=== PATIENT | male | born 2000 | race Caucasian/White ===

== ENCOUNTER 2020-06-05 15:56 | Emergency (ER) | payer SELFPAY ==
[2020-06-05 16:04] VITALS: BP 146/72
--- NOTE | 2020-06-05 16:25 | ER Document Report ---
ED Medical Screen (RME) - General Chief Complaint: Facial Swelling Stated Complaint: LIPS SWELLING,FACIAL SWELLING Time Seen by Provider: 06/05/20 16:16 Mode of Arrival: Ambulatory Information source: Patient Notes: 19-year-old male presented to ED for facial swelling that started yesterday afternoon. He states yesterday afternoon he took some vitamin C and drank some cranberry juice. He states after he noticed his face swelling he went to the urgent care [facility] and they prescribed him a methylprednisolone Dosepak. He took his first dose last night then he went to his aunts house and she gave him some more cranberry juice. He states he went home went to bed and when he woke up last night at about 11 PM his lip was very swollen. He states he went back to sleep he was not having trouble breathing at this time. He states this morning the lip was not getting any better so he took some Benadryl 75 mg by mouth in the mouth is now one quarter size it was yesterday. He does not know if he is allergic to the cranberry juice because he had it both times. Physical Exam - Vital signs Vitals: Temp Pulse Resp BP Pulse Ox 98.9 F 100 16 146/72 H 98 06/05/20 16:02 06/05/20 16:02 06/05/20 16:02 06/05/20 16:02 06/05/20 16:02 Course - Vital Signs Vital signs: Temp Pulse Resp BP Pulse Ox 98.9 F 100 16 146/72 H 98 06/05/20 16:02 06/05/20 16:02 06/05/20 16:02 06/05/20 16:02 06/05/20 16:02
--- NOTE | 2020-06-05 16:33 | ER Document Report ---
ED Flu Like - General Chief Complaint: Facial Swelling Stated Complaint: LIPS SWELLING,FACIAL SWELLING Time Seen by Provider: 06/05/20 16:16 Primary Care Provider: [facility] [Provider Group] - Follow up as needed [facility] [Provider Group] - Follow up as needed Mode of Arrival: Ambulatory Information source: Patient Notes: 19-year-old male presented to ED for improved swollen lip and cough and congestion. He states he had some cranberry juice and vitamin C yesterday and then noticed that his face was swelling. He went to [facility] and they started him on a methylprednisone Dosepak. He states he took the methylprednisone and then went to his aunts house and had some more cranberry juice. He states he woke up a little about 11:00 and found out that his mouth was swollen. He states he was not having any shortness of breath difficulty swallowing or any other symptoms so he went back to sleep. He states he woke up this morning and his lip was still very flat and swollen so he took some Benadryl 75 mg. He states his face is now less than a quarter is swollen as it was yesterday in his lip is even less swollen. He states he still has the cough and congestion for the last 3-4 5 days and has been using yegb-idz-pbgqgvl medications and lot of different types of medications. He states none of these seem to be helping. He states he has not had any fever or sore throat. He states he came to the emergency room to make sure that his mouth was getting better and to check out why he is having cough and congestion. He states he just had a Covid test and it will get resulted in a couple days. Constitutional: Negative for fever. HENT: Swelling to the face started yesterday improved intracerebrally after the methylprednisone the swelling to the lip started after drinking more of the cranberry juice and taking the methylprednisone. He states it all improved considerably when he took the Benadryl. Eyes: Negative for visual changes. Cardiovascular: Negative for chest pain. Respiratory: States has had cough and congestion for 3 to 4 days and has been using multiple tnig-vej-bxyllmd medications with no relief denies any fevers Gastrointestinal: Negative for abdominal pain, vomiting or diarrhea. Genitourinary: Negative for dysuria. Musculoskeletal: Negative for back pain. Skin: Negative for rash. Neurological: Negative for headaches, weakness or numbness. 10 point ROS negative except as marked above and in HPI. PHYSICAL EXAMINATION: GENERAL: Well-appearing, well-nourished and in no acute distress. HEAD: Atraumatic, normocephalic. EYES: Pupils equal round extraocular movements intact, conjunctiva are normal. ENT: No swelling noted to the face nose or lips. No swelling to the tongue. No airway compromise noted. Patient does have significant nasal drainage and postnasal drip NECK: Normal range of motion LUNGS: No respiratory distress no cough congestion lungs are clear to auscultation Musculoskeletal: Normal range of motion NEUROLOGICAL: Normal speech, normal gait. PSYCH: Normal mood, normal affect. SKIN: Warm, Dry, normal turgor, no rashes or lesions noted. - HPI Onset: Other - See above note Timing/Duration: Better Quality of pain: No pain Severity: None Pain Level: Denies Associated symptoms: Nonproductive cough, Rhinnorhea, Sinus pain/drainage, Other - Swelling to lip and face Similar symptoms previously: Yes Recently seen / treated by doctor: Yes Past Medical History - General Information source: Patient - Social History Smoking Status: Never Smoker Frequency of alcohol use: None Drug Abuse: None Lives with: Alone Family History: Reviewed & Not Pertinent Patient has suicidal ideation: No Patient has homicidal ideation: No - Past Medical History Cardiac Medical History: Reports: None Pulmonary Medical History: Reports: Hx Asthma EENT Medical History: Reports: None Neurological Medical History: Reports: None Endocrine Medical History: Reports: None Renal/ Medical History: Reports: None Malignancy Medical History: Reports None GI Medical History: Reports: None Musculoskeletal Medical History: Reports None Skin Medical History: Reports None Psychiatric Medical History: Reports: None Traumatic Medical History: Reports: None Infectious Medical History: Reports: None Surgical Hx: Negative Past Surgical History: Reports: None - Immunizations Immunizations up to date: Yes Physical Exam - Vital signs Vitals: Temp Pulse Resp BP Pulse Ox 98.9 F 100 16 146/72 H 98 06/05/20 16:02 06/05/20 16:02 06/05/20 16:02 06/05/20 16:02 06/05/20 16:02 Course - Re-evaluation Re-evalutation: 06/05/20 16:43 After performing a Medical Screening Examination, I estimate there is LOW risk for ACUTE CORONARY SYNDROME, RESPIRATORY FAILURE, SEPSIS OR MENINGITIS, thus I consider the discharge disposition reasonable. I have reevaluated this patient multiple times and no significant life threatening changes are noted. The patient and I have discussed the diagnosis and risks, and we agree with discharging home with close follow-up. We also discussed returning to the Emergency Department immediately if new or worsening symptoms occur. We have discussed the symptoms which are most concerning (e.g., changing or worsening pain, trouble swallowing or breathing, neck stiffness, fever) that necessitate immediate return. Patient is on medications methylprednisone for his allergic reaction. I have encouraged him to continue taking the Benadryl at the evening due to cold medicine I suggested during the day and to follow-up with his primary care and/or the emergency room if he has continued swelling to the face or mouth. - Vital Signs Vital signs: Temp Pulse Resp BP Pulse Ox 98.9 F 100 16 146/72 H 98 06/05/20 16:02 06/05/20 16:02 06/05/20 16:02 06/05/20 16:02 06/05/20 16:02 Discharge - Discharge Clinical Impression: Facial swelling URI (upper respiratory infection) Qualifiers: URI type: unspecified viral URI Qualified Code(s): J06.9 - Acute upper respiratory infection, unspecified Condition: Stable Disposition: HOME, SELF-CARE Additional Instructions: UPPER RESPIRATORY ILLNESS: You have a viral infection of the respiratory passages -- a "cold." This common infection causes nasal congestion, drainage, and often sore throat and cough. It is highly contagious. The disease usually lasts about 10 to 14 days. There is no "cure" for the viral infection -- it must run its course. If there is a complication, such as bacterial infection in the nose, sinuses, middle ear, or bronchial tubes, antibiotics may be required. The antibiotics won't affect the virus. Drink plenty of fluids. A humidifier may help. An expectorant medication or decongestant may make you more comfortable. Use acetaminophen or ibuprofen for fever or aches. See the doctor if fever persists over two days, if there is any significant worsening of your symptoms, or if you simply fail to improve as expected. You have been recommended treatment with Claritin 10 mg Sudafed 30 mg and Mucinex 600 mg. These are all jmhu-lla-ptnfkrb medications for cough cold congestion. You do need to call the go to the pharmacist to get the Sudafed from behind the counter please get a little red pills they are more effective. You could also use Flonase which is gnhe-qif-vqvkazx 1 spray each nostril twice a day. You could also use salt soda solution gargles. These will help to remove the drainage from the back your throat. Chloraseptic spray was omac-wgk-ripgcth that will also help with your sore throat. Salt and soda solution gargle 1 quart of water 1 tablespoon of salt 1 teaspoon of baking soda Mixed 3 ingredients together and boil for 1 minute Placed in a covered quart jar Use 1/2 ounce of cold solution to gargle 3 times a day USE OF ACETAMINOPHEN (Tylenol): Acetaminophen may be taken for pain relief or fever control. It's much safer than aspirin, offering a wider range of "safe" dosages. It is safe during . Some brand names are Tylenol, Panadol, Datril, Anacin 3, Tempra, and Liquiprin. Acetaminophen can be repeated every four hours. The following are maximum recommended dosages: >89 pounds or adults 650 mg to 900 mg Acetaminophen can be repeated every four hours. Maximum dose not to exceed 4000 mg a day. Please continue your steroid education as well. Benadryl at nighttime is okay to take with the Claritin because you only can take the Claritin in the morning. You could also benefit from some Pepcid Acid-Suppressing Medication You have a prescription for medicine which reduces the stomach's secretion of acid. Examples include Zantac, Tagament, and Pepcid. These drugs are often used to allow healing of ulcers or esophagitis. They may be needed to prevent recurrence of ulcers in some patients, or to prevent damage from acid reflux in the esophagus. Take all medication as prescribed, even after the pain is gone. Regular antacids may be added as needed if you have symptoms while taking this medicine. These medications sometimes are prescribed for allergic reactions because they have anti-histaminic effects and relieve the rash and itching of the reaction. There are usually no side effects from this medication. But, in rare cases and particularly in the elderly, serious problems can occur. Contact your doctor if there is fever, rash, hallucinations, confusion, or unusual bruising. Contact your doctor at once if you develop lightheadedness, black or bloody stool, or bloody vomitus. FOLLOW-UP CARE: If you have been referred to a physician for follow-up care, call the physicians office for an appointment as you were instructed or within the next two days. If you experience worsening or a significant change in your symptoms, notify the physician immediately or return to the Emergency Department at any time for re-evaluation. Forms: Elevated Blood Pressure, Return to Work Referrals: [facility] [Provider Group] - Follow up as needed [facility] [Provider Group] - Follow up as needed
== END 2020-06-05 16:51 | disposition home or self-care (01) ==
LOC: ER 15:56
DX: R22.0 Localized swelling, mass and lump, head (principal); J06.9 Acute upper respiratory infection, unspecified; R05 Cough; R09.82 Postnasal drip; J34.89 Other specified disorders of nose and nasal sinuses; J45.909 Unspecified asthma, uncomplicated
CPT/HCPCS: 99283